=== PATIENT | male | born 1995 | race Caucasian/White ===

== ENCOUNTER 2018-05-23 10:34 | Day surgery (SDC) | payer BC ==
[2018-05-23] MEDS ORDERED: LACTATED RINGER'S 1,000 ML IV (12:30)
[2018-05-23] MEDS ORDERED: DIPHENHYDRAMINE 50 MG INJ IV (13:30)
[2018-05-23] MEDS ORDERED: NEOSTIGMINE 3 MG/3 ML SYRINGE (13:30)
[2018-05-23] MEDS ORDERED: ROCURONIUM 50 MG INJ (13:30)
[2018-05-23] MEDS ORDERED: GLYCOPYRROLATE 0.4 MG INJ (13:30)
[2018-05-23] MEDS ORDERED: OXYCODONE/ACETAMINOPHEN (5/325) TAB PO (13:30)
[2018-05-23] MEDS ORDERED: HYDROmorphONE 1 MG/5 ML IV SYRINGE IV ×3 (13:30)
[2018-05-23] MEDS ORDERED: PROPOFOL 20 ML (13:30)
[2018-05-23] MEDS ORDERED: ONDANSETRON 4 MG INJ (13:31)
[2018-05-23] MEDS ORDERED: METOCLOPRAMIDE 10 MG INJ (13:31)
[2018-05-23] MEDS ORDERED: FENTAnyl 50 MCG/ML VIAL (13:31)
[2018-05-23] MEDS ORDERED: MIDAZOLAM 1 MG/ML 2 ML INJ (13:31)
[2018-05-23] MEDS: OXYMETAZOLINE 0.05% 15 ML NAS SPRAY NASAL (14:10)
[2018-05-23] MEDS: LIDOCAINE 1%/EPI 30 ML INJ (14:10)
[2018-05-23] MEDS: MEPERIDINE 25 MG INJ IV (15:10)
[2018-05-23] MEDS: ONDANSETRON 4 MG INJ IV (15:11)
== END 2018-05-23 16:35 | disposition home or self-care (01) ==
LOC: SDS 10:34
DX: J34.2 Deviated nasal septum (principal); J34.3 Hypertrophy of nasal turbinates
CPT/HCPCS: 30140; 88300

== ENCOUNTER 2018-08-16 15:11 | Day surgery (SDC) | payer BC ==
[2018-08-16] MEDS ORDERED: LACTATED RINGER'S 1,000 ML IV (16:00)
[2018-08-16] MEDS ORDERED: MIDAZOLAM 1 MG/ML 2 ML INJ (16:33)
[2018-08-16] MEDS: BUPIVACAINE 0.5% (SDV) 30 ML INJ (17:03)
[2018-08-16] MEDS ORDERED: PROPOFOL 20 ML (17:38)
[2018-08-16] MEDS ORDERED: ROCURONIUM 50 MG INJ (17:38)
[2018-08-16] MEDS ORDERED: CEFAZOLIN 1 GM INJ (17:38)
[2018-08-16] MEDS ORDERED: LIDOCAINE 2% (SDV) 5 ML INJ (17:38)
[2018-08-16] MEDS ORDERED: ONDANSETRON 4 MG INJ (17:39)
[2018-08-16] MEDS ORDERED: ROPIVACAINE 0.5 % 30 ML VIAL (17:40)
[2018-08-16] MEDS ORDERED: HYDROmorphONE 1 MG/5 ML IV SYRINGE IV ×2 (18:30)
[2018-08-16] MEDS ORDERED: METOCLOPRAMIDE 10 MG INJ IV (18:30)
[2018-08-16] MEDS ORDERED: OXYCODONE/ACETAMINOPHEN (5/325) TAB PO (18:30)
[2018-08-16] MEDS ORDERED: FENTAnyl 50 MCG/ML VIAL IV (18:30)
[2018-08-16] MEDS: ONDANSETRON 4 MG INJ IV (18:31)
[2018-08-16] MEDS: DIPHENHYDRAMINE 50 MG INJ IV (18:31)
[2018-08-16] MEDS: MEPERIDINE 25 MG INJ IV (18:31)
== END 2018-08-16 19:30 | disposition home or self-care (01) ==
LOC: SDS 15:11
DX: S62.332A Displaced fracture of neck of third metacarpal bone, right hand, initial encounter for closed fracture (principal); S62.334A Displaced fracture of neck of fourth metacarpal bone, right hand, initial encounter for closed fracture; S62.336A Displaced fracture of neck of fifth metacarpal bone, right hand, initial encounter for closed fracture; X58.XXXA Exposure to other specified factors, initial encounter; Y93.89 Activity, other specified; Y92.89 Other specified places as the place of occurrence of the external cause; Y99.8 Other external cause status
CPT/HCPCS: 26608; 73130-RT

== ENCOUNTER 2018-10-18 14:28 | Day surgery (SDC) | payer BC ==
[2018-10-18 15:05] LABS: ADD MAN DIFF? NO
[2018-10-18 15:06] LABS: BASOPHILS % 0.5 % (0.0-2.0); EOSINOPHILS # 0.1 10^3/ul (0.0-0.5); EOSINOPHILS % 1.6 % (0.0-7.0); HEMATOCRIT 46.6 % (42.0-52.0); HEMOGLOBIN 15.2 g/dl (14.0-18.0); LYMPHOCYTES # 1.6 10^3/ul (0.8-2.9); LYMPHOCYTES % 21.6 % (15.0-51.0); MEAN CORPUSCULAR HEMOGLOBIN 27.8 pg (29.0-33.0); MEAN CORPUSCULAR HGB CONC 32.6 g/dl (32.0-37.0); MEAN CORPUSCULAR VOLUME 85.3 fl (82.0-101.0); MEAN PLATELET VOLUME 10.4 fl (7.4-10.4); MONOCYTE # 0.6 10^3/ul (0.3-0.9); MONOCYTES % 8.6 % (0.0-11.0); NEUTROPHIL # 4.9 10^3/ul (1.6-7.5); NEUTROPHILS % 67.4 % (39.0-77.0); PLATELET COUNT 258 10^3/UL (140-415); RED BLOOD COUNT 5.46 10^6/ul (4.70-6.10); RED CELL DISTRIBUTION WIDTH 13.5 % (11.5-14.5)
[2018-10-18 15:06] LABS: WHITE BLOOD COUNT 7.3 10^3/ul (4.8-10.8)
[2018-10-18 15:25] LABS: ALANINE AMINOTRANSFERASE 37 IU/L (13-69); ALBUMIN 4.5 g/dl (3.3-4.9); ALBUMIN/GLOBULIN RATIO 1.32; ALKALINE PHOSPHATASE 92 IU/L (42-121); ANION GAP 11 (5-13); ASPARTATE AMINO TRANSFERASE 27 IU/L (15-46); BILIRUBIN,INDIRECT 0.3 mg/dl (0-1.1); BILIRUBIN,TOTAL 0.3 mg/dl (0.2-1.3); BLOOD UREA NITROGEN 15 mg/dl (7-20); CALCIUM 9.9 mg/dl (8.4-10.2); CARBON DIOXIDE 25 mmol/L (21-31); CHLORIDE 107 mmol/L (97-110); CREATININE 0.89 mg/dl (0.61-1.24); Estimated GFR > 60 mL/min (>60); GLUCOSE 85 mg/dl (70-220); PROTIME 13.3 Sec (11.9-14.9); SODIUM 143 mmol/L (135-144); TOTAL PROTEIN 7.9 g/dl (6.1-8.1)
[2018-10-18] MEDS ORDERED: MIDAZOLAM 1 MG/ML 2 ML INJ (15:43)
[2018-10-18] MEDS ORDERED: FENTAnyl 50 MCG/ML VIAL (15:43)
[2018-10-18] MEDS ORDERED: PROPOFOL 20 ML (15:43)
[2018-10-18] MEDS ORDERED: CEFAZOLIN 1 GM INJ (15:46)
[2018-10-18] MEDS ORDERED: LACTATED RINGER'S 1,000 ML IV* (16:00)
[2018-10-18] MEDS ORDERED: CEFAZOLIN 2 GM/50 ML (PMX) 50 ML IVPB (16:00)
[2018-10-18] MEDS ORDERED: PHENYLephrine (100 MCG/ML) 10ML SYG (16:15)
[2018-10-18] MEDS ORDERED: HYDROmorphONE 1 MG/5 ML IV SYRINGE IV (16:30)
[2018-10-18] MEDS ORDERED: DIPHENHYDRAMINE 50 MG INJ IV (16:30)
[2018-10-18] MEDS ORDERED: ONDANSETRON 4 MG INJ IV (16:30)
[2018-10-18] MEDS ORDERED: OXYCODONE/ACETAMINOPHEN (5/325) TAB PO ×2 (16:30)
[2018-10-18] MEDS ORDERED: MEPERIDINE 25 MG INJ IV (16:30)
[2018-10-18] MEDS ORDERED: EPHEDrine SULFATE 50 MG/5 ML SYG IV (16:30)
[2018-10-18] MEDS ORDERED: METOCLOPRAMIDE 10 MG INJ IV (16:30)
[2018-10-18] MEDS ORDERED: ALBUMIN HUMAN 5% 250 ML IV (16:30)
[2018-10-18] MEDS ORDERED: FENTAnyl 50 MCG/ML VIAL IV ×3 (16:30)
[2018-10-18] MEDS ORDERED: ONDANSETRON 4 MG INJ (16:31)
[2018-10-18] MEDS ORDERED: KETOROLAC 30 MG INJ (16:32)
[2018-10-18] MEDS ORDERED: METOCLOPRAMIDE 10 MG INJ (16:32)
[2018-10-18] MEDS ORDERED: DEXAMETHASONE 4 MG/ML 5 ML INJ (16:32)
[2018-10-18] MEDS: HYDROmorphONE 1 MG/5 ML IV SYRINGE IV ×2 (16:57→17:09)
[2018-10-18] MEDS: LIDOCAINE 1% (MPF) 30 ML INJ (17:42)
[2018-10-18] MEDS: BUPIVACAINE 0.5% (SDV) 30 ML INJ (17:42)
== END 2018-10-18 18:08 | disposition home or self-care (01) ==
LOC: SDS 14:28
DX: Z47.2 Encounter for removal of internal fixation device (principal); Z72.0 Tobacco use; R94.31 Abnormal electrocardiogram [ECG] [EKG]
CPT/HCPCS: 20680; 71045; 73130-RT; 80053; 85025; 85610; 85730; 93005